=== PATIENT | female | born 1980 | race Caucasian/White ===

== ENCOUNTER 2020-02-03 12:54 | Emergency (ER) | payer BC, OTHER ==
[~2020-02-03] VITALS: Ht 165.1 cm; Wt 74.8 kg
[2020-02-03 13:13] VITALS: BP 115/81
== END 2020-02-03 14:42 | disposition home or self-care (01) ==
LOC: ER 12:54
DX: I83.91 Asymptomatic varicose veins of right lower extremity (principal)
CPT/HCPCS: 12001